=== PATIENT | female | born 1980 | race African-American/Black ===

== ENCOUNTER 2024-07-31 14:00 | Emergency (ER) | payer BC, MEDICAID, OTHER ==
[2024-07-31 14:49] LABS: #Basophils 0.1 thou/uL (0.0-0.2); #Eosinophils 0.1 thou/uL (0.0-0.7); #Lymphocytes 2.3 thou/uL (1.20-3.40); #Monocytes 0.6 thou/uL (0.11-0.59); #Neutrophils 2.8 thou/uL (1.40-6.50); %Basophils 1.3 % (0.0-1.0); %Eosinophils 1.6 % (0.0-10.0); %Lymphocytes 39.1 % (21.0-51.0); %Monocytes 10.3 % (0.0-10.0); %Neutrophils 47.8 % (42.0-75.0); Hematocrit 27.6 % (36.0-47.0); Mean Corpuscular HGB CONC 29.1 g/dL (32.0-36.0); Mean Corpuscular Hemoglobin 18.7 pg (27.0-31.0); Mean Corpuscular Volume 64.4 fl (78.0-98.0); Platelet Count 463 10x3/uL (130-400); RBC Distribution Width 15.5 % (11.5-14.5); Red Blood Cell (RBC) Count 4.29 mill/uL (4.20-5.40); White Blood Cell (WBC) Count 5.8 10x3/uL (4.8-10.8)
[2024-07-31 22:13] LABS: Anisocytosis SLIGHT = 6-15 cells (100X) (0-5/hpf); Hypochromia SLIGHT = 6-15 cells (100X) (0-5/hpf); Microcytosis SLIGHT = 6-15 cells (100X) (0-5/hpf)
== END 2024-07-31 15:15 | disposition home or self-care (01) ==
LOC: NAV ERS 14:00
DX: D64.9 Anemia, unspecified (principal)
CPT/HCPCS: 85025; 99284